=== PATIENT | female | born 1995 | race Caucasian/White ===

== ENCOUNTER 2019-04-15 03:51 | Inpatient (IN) | payer MEDICAID ==
[~2019-04-15] VITALS: Ht 165.1 cm; Wt 59.0 kg
[2019-04-15] MEDS: DEXT 5%/LR + PITOCIN 20UNITS/L 1,000 ML IV SCH ×2 (04:50→05:45)
[2019-04-15] MEDS ORDERED: IBUPROFEN 400MG TABLET PO PRN (05:00)
[2019-04-15] MEDS ORDERED: DIPHENHYDRAMINE 25MG CAPSULE PO PRN (05:00)
[2019-04-15] MEDS ORDERED: ACETAMINOPHEN WITH CODEINE 300/30MG TABLET PO PRN (05:00)
[2019-04-15] MEDS ORDERED: BENZOCAINE/LANOLIN/ALOE VERA SPRAY TOP PRN (05:00)
[2019-04-15] MEDS ORDERED: RHO(D) IMMUNE GLOBULIN 300 MCG/SYR IM PRN (05:00)
[2019-04-15] MEDS ORDERED: IBUPROFEN 800MG TABLET PO PRN (05:00)
[2019-04-15] MEDS ORDERED: HEMORRHOIDAL SUPP PR PRN (05:00)
[2019-04-15] MEDS ORDERED: LANOLIN OINT 7GM TUBE TOP PRN (05:00)
[2019-04-15] MEDS ORDERED: GLYCERIN/WITCH HAZEL LEAF MEDICATED PAD TOP PRN (05:00)
[2019-04-15] MEDS ORDERED: MULT1TAB44 PO (05:26)
[2019-04-15 05:44] LABS: BASOPHILS % 0.1 % (0.0-2.0); EOSINOPHILS % 0.7 % (0.0-5.0); HEMATOCRIT. 40.1 % (36.0-48.0); HEMOGLOBIN. 13.3 g/dL (12.0-16.0); LYMPHOCYTES % 8.6 % (20.0-50.0); MEAN CORPUSCULAR HEMOGLOBIN 29.9 pg (28.0-32.0); MEAN CORPUSCULAR VOLUME 90.1 fL (81.0-99.0); MEAN PLATELET VOLUME 10.5 fl (7.4-10.4); NEUTROPHILS % 82.6 % (40.0-76.0); PLATELET 100 x1000/uL (130-400); RED BLOOD CELL COUNT 4.45 mill/uL (4.2-5.4); RED CELL DISTRIBUTION WIDTH 13.8 % (11.6-14.6)
[2019-04-15 05:45] VITALS: BP 128/83
[2019-04-15 05:52] LABS: INR 0.9; PROTHROMBIN TIME 9.5 sec (9.6-11.0)
[2019-04-15 06:12] LABS: CLARITY URINE TURBID (CLEAR); KETONES URINE TRACE (NEGATIVE); LEUKOCYTE ESTERASE URINE 3+ (NEGATIVE); NITRITE URINE POSITIVE (NEGATIVE); OCCULT BLOOD URINE 3+ (NEGATIVE); PROTEIN URINE 2+ (NEGATIVE); SPECIFIC GRAVITY URINE 1.011 (1.005-1.030)
[2019-04-15 06:14] LABS: COLOR URINE BROWN (YELLOW)
[2019-04-15 06:15] VITALS: BP 125/80
[2019-04-15 06:18] LABS: HEPATITIS B SURFACE ANTIGEN NEGATIVE
[2019-04-15 06:46] LABS: *BARBITURATES SCREEN URINE NEGATIVE (NEGATIVE); *BENZODIAZEPINES SCREEN URINE NEGATIVE (NEGATIVE)
[2019-04-15 06:47] LABS: *COCAINE SCREEN URINE NEGATIVE (NEGATIVE); METHADONE URINE SCREEN NEGATIVE (NEGATIVE)
[2019-04-15 06:48] LABS: CANNABINOID URINE SCREEN NEGATIVE (NEGATIVE); PHENCYCLIDINE URINE SCREEN NEGATIVE (NEGATIVE)
[2019-04-15 06:56] LABS: *AMPHETAMINES SCREEN URINE PRESUMTIVE POSITIVE (NEGATIVE); OPIATES URINE SCREEN PRESUMTIVE POSITIVE (NEGATIVE)
[2019-04-15 07:30] VITALS: BP 99/58
[2019-04-15] MEDS ORDERED: METHYLERGONOVINE MALEATE 0.2MG TABLET PO SCH (09:00)
[2019-04-15] MEDS ORDERED: PRENATAL VIT/FE FUMARATE/FA TABLET PO SCH (09:00)
[2019-04-15 15:20] VITALS: BP 110/70
[2019-04-15] MEDS ORDERED: DOCUSATE SODIUM 100MG CAPSULE PO SCH (21:00)
[2019-04-15 22:00] VITALS: BP 95/60
[2019-04-16] MEDS ORDERED: FERROUS SULFATE 325MG TABLET PO SCH (07:30)
[2019-04-16] MEDS ORDERED: TETANUS, DIPHTHERIA, PERTUSSIS VAC/PF 0.5ML (>7YR OLD) IM ONE (08:00)
[2019-04-16] MEDS ORDERED: INFLUENZA VIRUS VACCINE(AFLURIA) 0.5ML SYR IM ONE (10:00)
[2019-04-22 06:07] LABS: AMPHETAMINE CONF URINE Positive (.); OPIATES CONFIRMATION URINE Positive (.)
== END 2019-04-15 22:00 | disposition home or self-care (01) | DRG 561 ==
LOC: 8 EST LDRP 03:51 → 8EST 07:22
PROVIDERS: ADMIT Specialist; ATTEND Specialist
DX: O73.0 Retained placenta without hemorrhage (principal); O99.325 Drug use complicating the puerperium; F12.90 Cannabis use, unspecified, uncomplicated; O99.335 Smoking (tobacco) complicating the puerperium; F17.210 Nicotine dependence, cigarettes, uncomplicated
CPT/HCPCS: 36415; 80305; 80307; 80361; 81003; 85025; 86592; 86703; 86762; 86850; 86900; 87077; 87186; 87340; 90686; 90715; 99281; J2590